=== PATIENT | female | born 1975 | race Caucasian/White ===

== ENCOUNTER 2018-12-21 11:46 | Emergency (ER) | payer BC ==
[~2018-12-21] VITALS: Ht 167.6 cm; Wt 61.2 kg
--- OUTSIDE RECORDS SUMMARY | 2018-12-21 11:49 | XMS REPORT | Continuity of Care Document ---
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73 square meter(Confirmed) Resolved Problem 11/01/2017 [facility] Hypertension Resolved Problem 11/01/2017 [facility] Migraine Resolved Problem 11/01/2017 [facility] HEMATURIA, UNSPECIFIED Active [facility] Medications Medication Details Route Status Patient Instructions Ordering Provider Order Date Source omeprazole 40 mg oral delayed release capsule 40 mg=1 cap, PO, Daily, # 30 cap, 0 Refill(s) Active 10/29/2017 [facility] Metoclopramide 10 MG Oral Tablet [Reglan] 10 mg=1 tab, PO, QID, # 28 tab, 0 Refill(s) Active 10/29/2017 [facility] Lorazepam 0.5 mg, 1 tab, Route: PO, Drug form: TAB, TID, Dosing Weight 65.909, kg, PRN Anxiety, Start date: 04/13/16 10:31:00 CDT, Duration: 30 day, Stop date: 05/13/16 10:30:00 CSTNotes: (Same as: Ativan) Inactive 04/13/2016 [facility] influenza virus vaccine, inactivated 0.5 mL, Route: IM, Drug Form: SUSP, Daily, Start date: 04/13/16 9:00:00 CDT, Stop date: 04/13/16 21:00:00 CDTNotes: (Same as: Fluzone Quadrivalent, Fluarix Quadrivalent) For 3 years of age and older (0.5 mL IM) Shake well before use Inactive 04/13/2016 [facility] Losartan 100 mg, 2 tab, Route: PO, Drug form: TAB, Daily, Dosing Weight 65.909, kg, Start date: 04/13/16 9:00:00 CDT, Duration: 30 day, Stop date: 05/12/16 9:00:00 CSTNotes: (Same as: Cozaar) Inactive 04/13/2016 [facility] Oxycontin 15 mg, Route: PO, Drug form: ERTAB, Q12H, Dosing Weight 65.909, kg, Start date: 04/12/16 21:00:00 CDT, Duration: 30 day, Stop date: 05/12/16 9:00:00 [employer] Inactive 04/13/2016 [facility] gabapentin 600 MG Oral Tablet 600 mg, 2 cap, Route: PO, Drug form: CAP, TID, Dosing Weight 65.909, kg, Start date: 04/12/16 21:00:00 CDT, Duration: 30 day, Stop date: 05/12/16 14:00:00 CSTNotes: (Same as: Neurontin) No Longer Active 04/13/2016 [facility] Oxycontin 10 mg, 2 tab, Route: PO, Drug form: TAB, 5X Day, Dosing Weight 65.909, kg, PRN Pain Score 4-6, Start date: 04/12/16 19:41:00 CDT, Duration: 30 day, Stop date: 05/12/16 19:40:00 CSTNotes: (Same as: Ro xicodone) No Longer Active 04/13/2016 [facility] oxyCONTIN 10 mg, 1 tab, Route: PO, Drug form: ERTAB, Q12H, Start date: 04/12/16 18:19:00 CDT, Duration: 30 day, Stop date: 05/12/16 18:00:00 CSTNotes: Do not crush or chew. (Same as: OxyContin) No Longer Active 04/12/2016 [facility] Oxycodone Hydrochloride 5 MG Oral Tablet 5 mg, 1 tab, Route: PO, Drug form: TAB, Q6H, Dosing Weight 65.909, kg, PRN Pain Score 4-6, Start date: 04/12/16 17:32:00 CDT, Duration: 30 day, Stop date: 05/12/16 17:31:00 CSTNotes: (Same as: Roxicodone) Inactive 04/12/2016 [facility] 12 HR Oxycodone Hydrochloride 15 MG Extended Release Tablet [Oxycontin] 15 mg=1 tab, PO, Q12H, 0 Refill(s) Active 04/12/2016 [facility] SUMAtriptan 100 mg oral tablet 100 mg=1 tab, PO, ONCE, 0 Refill(s) Active 04/12/2016 [facility] Phenergan 25 mg, BID, 0 Refill(s) Active 04/12/2016 [facility] gabapentin 600 MG Oral Tablet 600 mg=1 tab, PO, TID, 0 Refill(s) Active 04/12/2016 [facility] Saline Flush 0.9% 10 ml, Route: IVP, Drug Form: INJ, Dosing Weight 65.909, kg, PRN, PRN Line Flush, Start date: 04/12/16 10:18:00 CDT, Duration: 30 day, Stop date: 05/12/16 9:17:00 CSTNotes: (Same as: BD Posiflush) No Longer Active 04/12/2016 [facility] Ondansetron 4 mg, 2 mL, Route: IVP, Drug form: INJ, Q6H, Dosing Weight 65.909, kg, PRN Nausea & Vomiting, Start date: 04/12/16 10:18:00 CDT, Duration: 30 day, Stop date: 05/12/16 10:17:00 CSTNotes: (Same as: Zofran) MEDICATION WASTE Product Size: 4 mg Product Wasted: ___ mg No Longer Active 04/12/2016 [facility] Acetaminophen 325 mg, 1 tab, Route: PO, Drug form: TAB, Q4H, Dosing Weight 65.909, kg, PRN Pain Score 4-6, Start date: 04/12/16 10:18:00 CDT, Duration: 30 day, Stop date: 05/12/16 10:17:00 CSTNotes: Do not exceed 4 gm/day. (Same as: Tylenol) Inactive 04/12/2016 [facility] oxyCODONE 15 mg oral tablet 15 mg=1 tab, PO, BID, PRN Pain, 0 Refill(s) Active 04/04/2016 [facility] losartan 50 mg oral tablet 50 mg=1 tab, PO, Daily, # 30 tab, 0 Refill(s) Active 04/04/2016 [facility] oxyCODONE 10 mg oral tablet 10 mg=1 tab, PO, 5X Day, 0 Refill(s) Active 04/04/2016 [facility] Allergies, Adverse Reactions, Alerts Substance Category Reaction Severity Reaction type Status Date Reported Comments Source azithromycin Assertion Drug allergy Active [facility] Zofran Assertion migraine Propensity to adverse reactions to drug Active [facility] Latex Assertion Drug allergy Active [facility] Immunizations Immunization Date Given Site Status Last Updated Comments Source pneumococcal 13-valent vaccine 04/14/2016 Left deltoid completed Liz [facility] influenza virus vaccine, inactivated 04/13/2016 Left Deltoid completed Lex [facility] Results Order Name Results Value Reference Range Date Interpretation Comments Source ELECTROLYTES AGAP 13.2 10.0 - 20.0 04/13/2016 [facility] ELECTROLYTES eGFR 104 04/13/2016 Result Comment: The eGFR is calculated using the CKD-EPI formula. In most young, healthy individuals the eGFR will be >90 mL/min/1.73m2. The eGFR declines with age. An eGFR of 60-89 may be normal in some populations, particularly the elderly, for whom the CKD-EPI formula has not been extensively validated. Use of the eGFR is not recommended in the following populations:

Individuals with unstable creatinine concentrations, including patients and those with serious co-morbid conditions.

Patients with extremes in muscle mass or diet.

The data above are obtained from the National Kidney Disease Education Program (NKDEP) which additionally recommends that when the eGFR is used in patients with extremes of body mass index for purposes of drug dosing, the eGFR should be multiplied by the estimated BMI. [facility] ELECTROLYTES Glucose Lvl 104 70 - 99 04/13/2016 [facility] ELECTROLYTES BUN 11 7 - 22 04/13/2016 [facility] ELECTROLYTES CO2 25 24 - 32 04/13/2016 [facility] ELECTROLYTES Chloride Lvl 107 95 - 109 04/13/2016 [facility] ELECTROLYTES Potassium Lvl 4.2 3.5 - 5.1 04/13/2016 [facility] ELECTROLYTES Sodium Lvl 141 135 - 145 04/13/2016 [facility] ELECTROLYTES Creatinine Lvl 0.73 0.50 - 1.40 04/13/2016 [facility] ELECTROLYTES Calcium Lvl 8.1 8.5 - 10.5 04/13/2016 [facility] HEMATOLOGY Hgb 13.0 12.0 - 16.0 04/13/2016 [facility] HEMATOLOGY Hct 38.9 36.0 - 48.0 04/13/2016 [facility] HEMATOLOGY MCV 87.4 80.0 - 98.0 04/13/2016 [facility] HEMATOLOGY WBC 10.0 3.7 - 10.4 04/13/2016 [facility] HEMATOLOGY RBC 4.44 4.20 - 5.40 04/13/2016 [facility] HEMATOLOGY MPV 7.1 7.4 - 10.4 04/13/2016 [facility] HEMATOLOGY Platelet 246 133 - 450 04/13/2016 [facility] HEMATOLOGY RDW 13.4 11.5 - 14.5 04/13/2016 [facility] HEMATOLOGY MCHC 33.5 32.0 - 36.0 04/13/2016 [facility] HEMATOLOGY MCH 29.3 27.0 - 31.0 04/13/2016 [facility] HEMATOLOGY Monocytes # 0.9 0.0 - 0.8 04/13/2016 [facility] HEMATOLOGY Eosinophils # 0.2 0.0 - 0.5 04/13/2016 [facility] HEMATOLOGY Lymphocytes # 3.6 1.0 - 5.5 04/13/2016 [facility] HEMATOLOGY Basophils 0.4 0.0 - 1.0 04/13/2016 [facility] HEMATOLOGY Segs-Bands # 5.3 1.5 - 8.1 04/13/2016 [facility] HEMATOLOGY Eosinophils 2.2 0.0 - 4.0 04/13/2016 [facility] HEMATOLOGY Segs 52.7 45.0 - 75.0 04/13/2016 [facility] HEMATOLOGY Lymphocytes 35.8 20.0 - 40.0 04/13/2016 [facility] HEMATOLOGY Monocytes 8.9 2.0 - 12.0 04/13/2016 [facility] IMMUNOLOGY Hep Bs Ab 146.6 <=7.4 mIU/mL 04/12/2016 [facility] IMMUNOLOGY Hep C Ab Negative *NA* (04/12/16 6:59 PM) 04/12/2016 [facility] IMMUNOLOGY HIV Ag/Ab 4th Gen Negative *NA* (04/12/16 6:59 PM) Negative 04/12/2016 [facility] CHEM PANEL Procalcitonin Lvl <0.05 ng/mL 0.00 - 0.10 04/12/2016 [facility] HEMATOLOGY Sed Rate 4 0 - 20 04/12/2016 [facility] IMMUNOLOGY C-REACTIVE PROTEIN <2.9 <=2.9 mg/L 04/12/2016 [facility] URINE AND STOOL UA Urobilinogen <=1.0 mg/dL 0.1 - 1.0 04/12/2016 [facility] URINE AND STOOL UA Mucus Few /LPF None Seen /LPF 04/12/2016 [facility] URINE AND STOOL UA Bacteria Occasional /HPF None Seen /HPF 04/12/2016 [facility] URINE AND STOOL UA Leuk Est Negative (04/12/16 2:00 PM) Negative 04/12/2016 [facility] URINE AND STOOL UA Nitrite Negative (04/12/16 2:00 PM) Negative 04/12/2016 [facility] URINE AND STOOL UA RBC 92 0 - 2 04/12/2016 [facility] URINE AND STOOL UA WBC 14 0 - 5 04/12/2016 [facility] URINE AND STOOL UA Sq Epi Few /LPF Few /LPF 04/12/2016 [facility] URINE AND STOOL UA Glucose Negative mg/dL Negative mg/dL 04/12/2016 [facility] URINE AND STOOL UA Ketones Negative mg/dL Negative mg/dL 04/12/2016 [facility] URINE AND STOOL UA Blood Moderate *ABN* (04/12/16 2:00 PM) Negative 04/12/2016 [facility] URINE AND STOOL UA Bili Negative *NA* (04/12/16 2:00 PM) Negative 04/12/2016 [facility] URINE AND STOOL UA pH 8.0 5.0 - 8.0 04/12/2016 [facility] URINE AND STOOL UA Protein >=300 mg/dL Negative mg/dL 04/12/2016 [facility] URINE AND STOOL UA Color Yellow *NA* (04/12/16 2:00 PM) Yellow 04/12/2016 [facility] URINE AND STOOL UA Turbidity Clear (04/12/16 2:00 PM) Clear 04/12/2016 [facility] URINE AND STOOL UA Spec Grav 1.022 <=1.030 04/12/2016 [facility] CHEM PANEL eGFR 92 04/12/2016 Result Comment: The eGFR is calculated using the CKD-EPI formula. In most young, healthy individuals the eGFR will be >90 mL/min/1.73m2. The eGFR declines with age. An eGFR of 60-89 may be normal in some populations, particularly the elderly, for whom the CKD-EPI formula has not been extensively validated. Use of the eGFR is not recommended in the following populations:

Individuals with unstable creatinine concentrations, including patients and those with serious co-morbid conditions.

Patients with extremes in muscle mass or diet.

The data above are obtained from the National Kidney Disease Education Program (NKDEP) which additionally recommends that when the eGFR is used in patients with extremes of body mass index for purposes of drug dosing, the eGFR should be multiplied by the estimated BMI. [facility] CHEM PANEL Glucose Lvl 84 70 - 99 04/12/2016 [facility] CHEM PANEL Creatinine Lvl 0.81 0.50 - 1.40 04/12/2016 [facility] CHEM PANEL BUN 12 7 - 22 04/12/2016 [facility] CHEM PANEL Sodium Lvl 138 135 - 145 04/12/2016 [facility] CHEM PANEL Potassium Lvl 4.9 3.5 - 5.1 04/12/2016 Result Comment: Specimen is 1+ hemolyzed 04/12/2016 10:57 [facility] CHEM PANEL Chloride Lvl 105 95 - 109 04/12/2016 [facility] CHEM PANEL CO2 28 24 - 32 04/12/2016 [facility] CHEM PANEL Total Protein 7.1 6.4 - 8.4 04/12/2016 [facility] CHEM PANEL Albumin Lvl 3.4 3.5 - 5.0 04/12/2016 [facility] CHEM PANEL Calcium Lvl 7.9 8.5 - 10.5 04/12/2016 [facility] CHEM PANEL AST 39 0 - 37 04/12/2016 [facility] CHEM PANEL ALT 19 0 - 65 04/12/2016 [facility] CHEM PANEL Alk Phos 64 39 - 136 04/12/2016 [facility] CHEM PANEL Bili Total 0.3 0.2 - 1.3 04/12/2016 [facility] CHEM PANEL B/C Ratio 15 6 - 25 04/12/2016 [facility] CHEM PANEL AGAP 9.9 10.0 - 20.0 04/12/2016 [facility] CHEM PANEL A/G Ratio 0.9 0.7 - 1.6 04/12/2016 [facility] CHEM PANEL Globulin 3.7 2.7 - 4.2 04/12/2016 [facility] CHEM PANEL Lactic Acid Lvl 0.9 0.5 - 2.2 04/12/2016 [facility] MCV 88.3 80.0 - 98.0 04/12/2016 [facility] MCH 29.3 27.0 - 31.0 04/12/2016 [facility] MCHC 33.2 32.0 - 36.0 04/12/2016 [facility] RDW 13.3 11.5 - 14.5 04/12/2016 [facility] Platelet 289 133 - 450 04/12/2016 [facility] MPV 7.1 7.4 - 10.4 04/12/2016 [facility] RBC 4.92 4.20 - 5.40 04/12/2016 [facility] Hgb 14.4 12.0 - 16.0 04/12/2016 [facility] Hct 43.4 36.0 - 48.0 04/12/2016 [facility] WBC 11.6 3.7 - 10.4 04/12/2016 [facility] Segs 72.3 45.0 - 75.0 04/12/2016 [facility] Basophils 0.4 0.0 - 1.0 04/12/2016 [facility] Eosinophils 0.7 0.0 - 4.0 04/12/2016 [facility] Lymphocytes 19.9 20.0 - 40.0 04/12/2016 [facility] Monocytes 6.7 2.0 - 12.0 04/12/2016 [facility] Lymphocytes # 2.3 1.0 - 5.5 04/12/2016 [facility] Segs-Bands # 8.4 1.5 - 8.1 04/12/2016 [facility] Monocytes # 0.8 0.0 - 0.8 04/12/2016 [facility] Eosinophils # 0.1 0.0 - 0.5 04/12/2016 [facility] Pathology Reports No Data Provided for This Section Diagnostic Reports Report Value Date Source Biopsy kidney VR RENAL BIOPSY: HISTORY: IgA nephropathy with worsening proteinuria and stage II chronic kidney disease. PROCEDURE: The procedure was done using CT guidance, sterile technique and local anesthetic (DLP 726.38 mGycm). Moderate Sedation was administered by the Interventional Radiology Nurse per ASA guidelines under my direct supervision (6 mg Versed/200 mcg fentanyl over 21 minutes). A 17-gauge guide needle was placed from a left posterior flank approach into the inferior pole cortex of the left kidney. 4 cores of tissue were then obtained using a coaxial 18-gauge cutting needle and placed into Darryn's and Shiloh fixatives for histology and electron microscopy. The tract was embolized with one piece of Gelfoam via the guide needle prior to its removal. Post biopsy CT showed no evidence of significant renal or perinephric hematoma. The patient tolerated the procedure well without immediate complications, and was transferred to Special Procedures Observation stable condition. [id number] 10/29/2017 [facility] Biopsy kidney VR Patient Name: MEENU DELACRUZ : 1975; Age: 40 years y/o Female MR: [id number] Study: Biopsy kidney VR 04/04/2016 8:04 AM CDT Ordering Physician: MD Camille Sheikh MD Clinical Indication: hematuria and kidney disease; Comparison: None CT-guided percutaneous core biopsy right renal lower pole cortex. Intravenous conscious sedation. Patient received total 8 mg Versed and 300 mg fentanyl, 50 mg of Benadryl intravenously for conscious sedation. Total physician-patient [id number] sedation monitoring 25 minutes. 18-gauge core biopsy of right renal lower pole cortex performed through 17-gauge cannula. CT guidance. 6 core biopsy specimens obtained, 3 of which sent in Darryn's and 3 which sent in Shiloh media for laboratory analysis. Procedure well-tolerated. SL: [id number] 04/04/2016 [facility] Consultation Notes No Data Provided for This Section Discharge Summaries No Data Provided for This Section History and Physicals No Data Provided for This Section Vital Signs Vital Sign Value Date Comments Source Weight 63.636 10/29/2017 [facility] Height 167.64 cm 10/29/2017 [facility] BMI Calculated 22.64 10/29/2017 [facility] Respitory Rate 16 04/13/2016 [facility] Systolic (mm Hg) 109 04/13/2016 [facility] Diastolic (mm Hg) 75 04/13/2016 [facility] Heart Rate 86 04/13/2016 [facility] Temperature Oral (F) 98.6 F 04/13/2016 [facility] Temperature Oral (F) 98.2 F 04/13/2016 [facility] Respitory Rate 16 04/13/2016 [facility] Systolic (mm Hg) 143 04/13/2016 [facility] Diastolic (mm Hg) 88 04/13/2016 [facility] Heart Rate 82 04/13/2016 [facility] Respitory Rate 18 04/13/2016 [facility] Heart Rate 65 04/13/2016 [facility] Temperature Oral (F) 98.1 F 04/13/2016 [facility] Systolic (mm Hg) 113 04/13/2016 [facility] Diastolic (mm Hg) 73 04/13/2016 [facility] Weight 65.909 04/12/2016 [facility] BMI Calculated 23.45 04/12/2016 [facility] Height 167.64 cm 04/12/2016 [facility] Height 167.64 cm 04/12/2016 [facility] Weight 65.909 04/12/2016 [facility] BMI Calculated 23.45 04/12/2016 [facility] Weight 65 04/04/2016 [facility] BMI Calculated 23.13 04/04/2016 [facility] Height 167.64 cm 04/04/2016 [facility] Encounters Location Location Details Encounter Type Encounter Number Reason For Visit Attending Provider ADM Date DC Date Status Source [facility] Outpatient [id number] Camille Sheikh 04/04/2016 04/05/[address] [facility] [place] [place] Observation [id number] Celeste Fernandes 04/12/2016 04/14/[address] [facility] [place] [place] Emergency [id number] David Suttonwuma 02/16/2017 02/16/[address] [facility] [place] [place] Outpatient [id number] Camille Sheikh 10/29/2017 10/30/2017 [facility] Procedures Procedure Code Date Perfomer Comments Source section [id number] 06/18/2011 [facility] Cholecystectomy [id number] [facility] Fusion of cervicothoracic joint by anterior approach [id number] [facility] Fusion of joint of lumbar spine by anterior approach<sup>1</sup> [id number] L1-L2, L5-S1 [facility] Hysterectomy<sup>2</sup> [id number] partial [facility] Tonsillectomy [id number] [facility] Assessment and Plan Assessment and Plan Date Source Extracted from:Title: Clinical Document Author: Petra Correa MD Date: 04/13/16 Cardiology [facility] Impression: 1. IgA nephropathy. 2. Hypertension. 3. Tobacco use disorder. Plan: TTE no vegetations or significant valvular disorders Inflammatory markers unremarkable Very low pre test prob for endocarditis No indication for BRIA OK to DC home from CV perspective Subjective: Patient seen and examined. Telemetry reviewed: Alert No CP No SOB No N/V Objective Vitals Tmp(F) Pulse BP RR SpO2 FIO2 04/13 12:25 98.6 86 109/75 16 96 --- 04/13 09:16 98.2 82 143/88 16 98 --- 04/13 04:18 98.1 65 113/73 18 94 --- 04/12 23:03 97.3 71 114/73 18 97 --- 04/12 19:20 98.6 73 137/66 18 95 --- 24 Hr Tmax: 98.6F (37.00c) at 04/13 12:25 Vital Signs are the last 5 in the past 48 hours. HEENT: Neck Supple, No JVD, no carotid bruits CVS: Regular rate, Normal S1S2 no murmur rubs or gallops LUNGS: Clear to auscultation ABD: Soft, Non-tender, + BS, no bruits or organomegaly EXT: No ankle edema, palpable distal pulses Skin: No ulcers Neuro: Grossly non-focal Labs (Last four charted values) WBC 10.0 (APR 13) H 11.6 (APR 12) Hgb 13.0 (APR 13) 14.4 (APR 12) Hct 38.9 (APR 13) 43.4 (APR 12) Plt 246 (APR 13) 289 (APR 12) Na 141 (APR 13) 138 (APR 12) K 4.2 (APR 13) 4.9 (APR 12) CO2 25 (APR 13) 28 (APR 12) Cl 107 (APR 13) 105 (APR 12) Cr 0.73 (APR 13) 0.81 (APR 12) BUN 11 (APR 13) 12 (APR 12) Glucose Random H 104 (APR 13) 84 (APR 12) Ca L 8.1 (APR 13) L 7.9 (APR 12) Scheduled Meds (4): 04/12/16 gabapentin (gabapentin 600 mg oral tablet) 600 mg PO TID 04/13/16 influenza virus vaccine, inactivated 0.5 mL IM Daily 04/13/16 losartan 100 mg PO Daily 04/12/16 oxyCODONE (oxyCONTIN) 10 mg PO Q12H Extracted from:Title: Clinical Document Author: Mynor Masters MD Date: 04/12/16 [facility] INFECTIOUS DISEASE CONSULTATION NOTE Danilo Storm M.D. Syed W. Hasan, M.D. REFERRING PHYSICIAN: Dr. Camille Sheikh REASON FOR CONSULTATION: Necrotizing Glomerulonephritis CHIEF COMPLAINT: Blood in urine HISTORY OF PRESENT ILLNESS: Ms. Meenu Delacruz is a 40 year old lady who underwent spinal fusion back in July for a herniated disk after a fall. She had repeat surgery last August at which point she was noted to have hematuria. 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 She was admitted to ensure there was no evidence of infection before initiating therapy with prednisone and Cytoxan. Patient denies any fever or chills but has noted sweats at night for several months occasionally. She denies any weight loss or travel outside the country. She denies any burning or pain with urination. She has had a chronic cough for the past month after an episode of bronchitis and is currently smoking. REVIEW OF SYSTEMS: CONSTITUTIONAL: Denies fever, chills, + night sweats. EYES: Denies blurry vision or eye pain. ENT: Denies ear pain, nasal drainage, or sore throat. RESPIRATORY: Denies shortness of breath; +cough. CARDIOVASCULAR: Denies chest pain or palpitations. GASTROINTESTINAL: Denied nausea, vomiting, diarrhea, or abdominal pain. GENITOURINARY: Denies dysuria, frequency, or urgency. + orange urine MUSCULOSKELETAL: No joint pain, muscle aches, or swelling. NEUROLOGIC: Denies any focal weakness or headaches. SKIN: No rashes or lesions. ENDOCRINE: Denies history of polyuria, polydipsia, heat or cold intolerance. HEME/LYMPH: Denies bleeding, bruising, or swollen glands. PSYCH: No depression or anxiety PAST MEDICAL/SURGICAL HISTORY: Chronic back pain Chronic renal disease, stage 1, glomerular filtration rate (GFR) equal to or greater than 90 mL/min/1.73 square meter Hypertension Migraine section: 2011 Fusion of joint of lumbar spine by anterior approach Tonsillectomy Fusion of cervicothoracic joint by anterior approach Hysterectomy Cholecystectomy SOCIAL HISTORY: Current tobacco use and alcohol use FAMILY HISTORY: No kidney disease PHYSICAL EXAMINATION: Vitals Tmp(F) Pulse BP RR SpO2 FIO2 04/12 15:57 98.1 71 97/64 18 98 --- 04/12 11:12 98.3 63 124/78 18 97 --- 04/12 10:13 98.0 81 128/83 18 96 --- 24 Hr Tmax: 98.3F (36.83c) at 04/12 11:12 Vital Signs are the last 5 in the past 48 hours. GEN: No acute distress, conversant HEENT: Sclera white; No thrush or erythema; Moist membranes LUNG: Clear to auscultation bilaterally; No wheeze, rhonchi, or crackles HEART: RRR; +S1/S2; No murmurs, rubs, or gallops ABD: +BS; Soft; Non-distended; Non-tender EXT: No clubbing, cyanosis, or edema NEURO: Alert and oriented; PERRL; No gross focal deficits SKIN: No rashes, ecchymosis, or lesions PSYCH: Appropriate affect (no lines, tubes, drains information documentated) MEDICATIONS: Scheduled Meds (2): 04/13/16 influenza virus vaccine, inactivated 0.5 mL IM Daily 04/13/16 losartan 100 mg PO Daily ALLERGIES: Allergies (3) Active Reaction Zofran migraine Latex None documented azithromycin None documented LABORATORY (Reviewed): Labs (Last four charted values) WBC H 11.6 (APR 12) Hgb 14.4 (APR 12) Hct 43.4 (APR 12) Plt 289 (APR 12) Na 138 (APR 12) K 4.9 (APR 12) CO2 28 (APR 12) Cl 105 (APR 12) Cr 0.81 (APR 12) BUN 12 (APR 12) Glucose Random 84 (APR 12) Ca L 7.9 (APR 12) Alk Phos: 64 04/12/16 11:10:46 A/G Ratio: 0.9 04/12/16 11:10:46 ALT: 19 04/12/16 11:10:46 Albumin Lvl: 3.4 Low 04/12/16 11:10:46 Bili Total: 0.3 04/12/16 11:10:46 Total Protein: 7.1 04/12/16 11:10:46 Globulin: 3.7 04/12/16 11:10:46 AST: 39 High 04/12/16 11:10:46 MICROBIOLOGY (Reviewed): Blood: Pending Urine: Pending IMAGING (Reviewed): TTE: Aortic Valve: There is no evidence of aortic stenosis. There is no evidence of aortic regurgitation. The aortic valve structure is normal. Mitral Valve: There is no evidence of mitral stenosis. There is no evidence of mitral regurgitation. The mitral valve leaflets are normal. Tricuspid Valve: There is mild tricuspid regurgitation. The tricuspid valve leaflets are morphologically normal. Unable to estimate right ventricular systolic pressure. Pulmonic Valve: The pulmonic valve is not well visualized. ASSESSMENT and PLAN: 40 yo WF presents with: * Leukocytosis * Necrotizing Glomerulonephritis * IgA Nephropathy * Nephrotic Proteinuria * Hematuria * Tobacco Use - Patient presents with necrotizing glomerulonephritis with subjective night sweats and evidence of mild leukocytosis upon admission with hematuria. She does not appear systemically ill and has no current localizing signs of infection. Will continue to follow-up cultures and procalcitonin. TTE with only mild TR. Unless blood cultures are positive, would not need to pursue BRIA at this time. Will continue to monitor off antibiotics and ensure no infectious etiologies before proceeding with immunosuppression. Extracted from:Title: Clinical Document Author: Celeste Fernandes MD Date: 04/12/16 Chart reveiwed. Patient seen and examined. WIll continue to follow. [id number] 04/14/2016 [facility] Plan of Care No Data Provided for This Section Social History Social History Date Source Social History TypeResponse Alcohol Current, Type Beer, Wine, Liquor. Frequency: 1-2 times per month. Previous treatment: None. Alcohol use interferes with work or home: No. Drinks more than intended: No. Others hurt by drinking: No. Ready to change: No. Household alcohol concerns: No. Smoking Status Current every day smoker; Type: Cigarettes; Previous treatment: None; Ready to change: No; Concerns about tobacco use in household: No; Exposure to Tobacco Smoke None; Cigarette Smoking Last 365 Days No; Reg Smoking Cessation Counseling Yes; Tobacco use per day: 20; Number of years: 23; Other Tobacco Frequency [id number]; entered on: 10/29/17 04/04/2016 [facility] Family History No Data Provided for This Section Advance Directives No Data Provided for This Section Functional Status No Data Provided for This Section
--- OUTSIDE RECORDS SUMMARY | 2018-12-21 11:50 | XMS REPORT | Summary of Care ---
Author Author [facility] Organization [facility] Address Unknown Phone Unavailable Encounter BRYNN Gonzalez(GARY) [id number] Date(s): 10/29/17 - 10/29/17 [facility] [address] [place] [address]- [phone] Discharge Disposition: Home or Self Care Attending Physician: Camille Sheikh MD Referring Physician: Camille Sheikh MD Vital Signs Most recent to 1 oldest [Reference Range]: Height 167.64 cm (10/29/17 9:13 AM) Weight 63.636 kg (10/29/17 9:13 AM) Body Mass Index 22.64 m2 (10/29/17 9:13 AM) Problem List Condition Effective Dates Status Health Status Informant Chronic back Resolved pain(Confirmed) Chronic renal Resolved disease, stage 1, glomerular filtration rate (GFR) equal to or greater than 90 mL/min/1.73 square meter(Confirmed) Hypertension(Confirm Resolved ed) Migraine(Confirmed) Resolved Allergies, Adverse Reactions, Alerts Substance Reaction Severity Status azithromycin Active Zofran migraine Active Latex Active Medications omeprazole 40 mg oral delayed release capsule 40 mg=1 cap, PO, Daily, # 30 cap, 0 Refill(s) Start Date: 10/29/17 Status: Ordered Reglan 10 mg oral tablet 10 mg=1 tab, PO, QID, # 28 tab, 0 Refill(s) Start Date: 10/29/17 Stop Date: 11/05/17 Status: Ordered Results No data available for this section Immunizations Given and Recorded Vaccine Date Status Refusal Reason pneumococcal 13-valent vaccine 04/13/16 Given influenza virus vaccine, inactivated 04/13/16 Given Procedures Procedure Date Related Diagnosis Body Site Status section 2011 Completed Cholecystectomy Completed Fusion of cervicothoracic joint by anterior Completed approach Fusion of joint of lumbar spine by anterior Completed approach1 Hysterectomy2 Completed Tonsillectomy Completed 1L1-L2, L5-S1 2partial Social History Social History Type Response Alcohol Current, Type Beer, Wine, Liquor. Frequency: [...] Number of years: 23; Other Tobacco Frequency [id number]; entered on: 10/29/17 Assessment and Plan No data available for this section
--- OUTSIDE RECORDS SUMMARY | 2018-12-21 11:50 | XMS REPORT | Summary of Care ---
Author Author [facility] Organization [facility] Address Unknown Phone Unavailable Encounter BRYNN Gonzalez(GARY) [id number] Date(s): 04/12/16 - 04/13/16 [facility] [address] [place] [address]- Discharge Disposition: Home or Self Care Attending Physician: Celeste Fernandes MD Admitting Physician: Celeste Fernandes MD Vital Signs 1 2 3 Most recent to oldest [Reference Range]: 167.64 cm (04/12/16 10:21 AM) 167.64 cm (04/12/16 10:15 AM) Height 98.6 DegF (04/13/16 12:25 PM) 98.2 DegF (04/13/16 9:16 AM) 98.1 DegF (04/13/16 4:18 AM) Temperature Oral [96.4-99.1 DegF] 109/75 mmHg (04/13/16 12:25 PM) 143/88 mmHg *HI* (04/13/16 9:16 AM) 113/73 mmHg (04/13/16 4:18 AM) Blood Pressure [90-140/60-90 mmHg] 16 BRMIN (04/13/16 12:25 PM) 16 BRMIN (04/13/16 9:16 AM) 18 BRMIN (04/13/16 4:18 AM) Respiratory Rate [14-20 BRMIN] 86 bpm (04/13/16 12:25 PM) 82 bpm (04/13/16 9:16 AM) 65 bpm (04/13/16 4:18 AM) Peripheral Pulse Rate [60-100 bpm] 65.909 kg (04/12/16 10:21 AM) 65.909 kg (04/12/16 10:15 AM) Weight 23.45 m2 (04/12/16 10:21 AM) 23.45 m2 (04/12/16 10:15 AM) Body Mass Index Problem List Condition Effective Dates Status Health Status Informant Chronic back Resolved pain(Confirmed) Chronic renal Resolved disease, stage 1, glomerular filtration rate (GFR) equal to or greater than 90 mL/min/1.73 square meter(Confirmed) Hypertension(Confirm Resolved ed) Migraine(Confirmed) Resolved Allergies, Adverse Reactions, Alerts Substance Reaction Severity Status azithromycin Active Latex Active Zofran migraine Active Medications acetaminophen 325 mg, 1 tab, Route: PO, Drug form: TAB, Q4H, Dosing Weight 65.909, kg, PRN To n Score 4-6, Start date: 04/12/16 10:18:00 CDT, Duration: 30 day, Stop date: 10:17:00 [employer] MAINTENA[employer]CE SUPERVISOR Notes: Do not exceed 4 gm/day. (Same as: Tylenol) Start Date: 04/12/16 Stop Date: 04/12/16 Status: Deleted acetaminophen 650 mg, 2 tab, Route: PO, Drug form: TAB, Q4H, Dosing Weight 65.909, kg, PRN To n 1-3/Temp > 100.4 F, Start date: 04/12/16 10:18:00 CDT, Duration: 30 day, Stop date: 05/12/16 10:17:00 WATER MAINTENANCE SUPERVISOR Notes: Do not exceed 4 gm/day. (Same as: Tylenol) Start Date: 04/12/16 Stop Date: 04/13/16 Status: Discontinued gabapentin 600 mg oral tablet 600 mg, 2 cap, Route: PO, Drug form: CAP, TID, Dosing Weight 65.909, kg, Start d ate: 04/12/16 21:00:00 CDT, Duration: 30 day, Stop date: 05/12/16 14:00:00 WATER MAINTENANCE SUPERVISOR Notes: (Same as: Neurontin) Start Date: 04/12/16 Stop Date: 04/13/16 Status: Discontinued gabapentin 600 mg oral tablet 600 mg=1 tab, PO, TID, 0 Refill(s) Start Date: 04/12/16 Status: Ordered influenza virus vaccine, inactivated 0.5 mL, Route: IM, Drug Form: SUSP, Daily, Start date: 04/13/16 9:00:00 CDT, Sto p date: 04/13/16 21:00:00 CDT Notes: (Same as: Fluzone Quadrivalent, Fluarix Quadrivalent)For 3 years of age a nd older (0.5 mL IM)Shake well before use Start Date: 04/13/16 Stop Date: 04/13/16 Status: Discontinued LORazepam 0.5 mg, 1 tab, Route: PO, Drug form: TAB, TID, Dosing Weight 65.909, kg, PRN Anx iety, Start date: 04/13/16 10:31:00 CDT, Duration: 30 day, Stop date: 05/13/16 1 0:30:00 WATER MAINTENANCE SUPERVISOR Notes: (Same as: Ativan) Start Date: 04/13/16 Stop Date: 04/13/16 Status: Discontinued losartan 100 mg, 2 tab, Route: PO, Drug form: TAB, Daily, Dosing Weight 65.909, kg, Start date: 04/13/16 9:00:00 CDT, Duration: 30 day, Stop date: 05/12/16 9:00:00 WATER MAINTENANCE SUPERVISOR Notes: (Same as: Reyna) Start Date: 04/13/16 Stop Date: 04/13/16 Status: Discontinued losartan 100 mg, 2 tab, Route: PO, Drug form: TAB, Daily, Dosing Weight 65.909, kg, Start date: 04/13/16 9:00:00 CDT, Duration: 30 day, Stop date: 05/12/16 9:00:00 WATER MAINTENANCE SUPERVISOR Notes: (Same as: Reyna) Start Date: 04/13/16 Stop Date: 04/12/16 Status: Deleted ondansetron 4 mg, 2 mL, Route: IVP, Drug form: INJ, Q6H, Dosing Weight 65.909, kg, PRN Nause a & Vomiting, Start date: 04/12/16 10:18:00 CDT, Duration: 30 day, Stop date: 05/12/16 10:17:00 WATER MAINTENANCE SUPERVISOR Notes: (Same as: James) MEDICATION WASTE Product Size: 4 mgProduct Was olivier: ___ mg Start Date: 04/12/16 Stop Date: 04/13/16 Status: Discontinued oxyCODONE 5 mg oral tablet 10 mg, 2 tab, Route: PO, Drug form: TAB, 5X Day, Dosing Weight 65.909, kg, PRN P ain Score 4-6, Start date: 04/12/16 19:41:00 CDT, Duration: 30 day, Stop date: 07/12/15 19:40:00 WATER MAINTENANCE SUPERVISOR Notes: (Same as: Roxicodone) Start Date: 04/12/16 Stop Date: 04/13/16 Status: Discontinued oxyCODONE 5 mg oral tablet 5 mg, 1 tab, Route: PO, Drug form: TAB, Q6H, Dosing Weight 65.909, kg, PRN Pain Score 4-6, Start date: 04/12/16 17:32:00 CDT, Duration: 30 day, Stop date: 05/12 17:31:00 WATER MAINTENANCE SUPERVISOR Notes: (Same as: Roxicodone) Start Date: 04/12/16 Stop Date: 04/12/16 Status: Discontinued oxyCONTIN 15 mg, Route: PO, Drug form: ERTAB, Q12H, Dosing Weight 65.909, kg, Start date: 04/12/16 21:00:00 CDT, Duration: 30 day, Stop date: 05/12/16 9:00:00 WATER MAINTENANCE SUPERVISOR Start Date: 04/12/16 Stop Date: 04/12/16 Status: Deleted oxyCONTIN 10 mg, 1 tab, Route: PO, Drug form: ERTAB, Q12H, Start date: 04/12/16 18:19:00 C DT, Duration: 30 day, Stop date: 05/12/16 18:00:00 WATER MAINTENANCE SUPERVISOR Notes: Do not crush or chew.(Same as: OxyContin) Start Date: 04/12/16 Stop Date: 04/13/16 Status: Discontinued oxyCONTIN 15 mg oral tablet, extended release 15 mg=1 tab, PO, Q12H, 0 Refill(s) Start Date: 04/12/16 Status: Ordered Phenergan 25 mg, BID, 0 Refill(s) Start Date: 04/12/16 Status: Ordered Saline Flush 0.9% 10 ml, Route: IVP, Drug Form: INJ, Dosing Weight 65.909, kg, PRN, PRN Line Flush , Start date: 04/12/16 10:18:00 CDT, Duration: 30 day, Stop date: 05/12/16 9:17: 00 WATER MAINTENANCE SUPERVISOR Notes: (Same as: BD Posiflush) Start Date: 04/12/16 Stop Date: 04/13/16 Status: Discontinued SUMAtriptan 100 mg oral tablet 100 mg=1 tab, PO, ONCE, 0 Refill(s) Start Date: 04/12/16 Status: Ordered Results ELECTROLYTES Most recent to 1 2 oldest [Reference Range]: Sodium Lvl [135-145 141 mEq/L 138 mEq/L mEq/L] (04/13/16 4:07 AM) (04/12/16 10:40 AM) Potassium Lvl 4.2 mEq/L 4.9 mEq/L 1 [3.5-5.1 mEq/L] (04/13/16 4:07 AM) (04/12/16 10:40 AM) Chloride Lvl [95-109 107 mEq/L 105 mEq/L mEq/L] (04/13/16 4:07 AM) (04/12/16 10:40 AM) CO2 [24-32 mEq/L] 25 mEq/L 28 mEq/L (04/13/16 4:07 AM) (04/12/16 10:40 AM) AGAP [10.0-20.0 13.2 mEq/L 9.9 mEq/L mEq/L] (04/13/16 4:07 AM) *LOW* (04/12/16 10:40 AM) 1Result Comment: Specimen is 1+ hemolyzed 04/12/2016 10:57 CHEM PANEL Most recent to 1 2 oldest [Reference Range]: Creatinine Lvl 0.73 mg/dL 0.81 mg/dL [0.50-1.40 mg/dL] (04/13/16 4:07 AM) (04/12/16 10:40 AM) eGFR 104 mL/min/1.73m2 1 92 mL/min/1.73m2 2 *NA* *NA* (04/13/16 4:07 AM) (04/12/16 10:40 AM) BUN [7-22 mg/dL] 11 mg/dL 12 mg/dL (04/13/16 4:07 AM) (04/12/16 10:40 AM) B/C Ratio [6-25] 15 (04/12/16 10:40 AM) Glucose Lvl [70-99 104 mg/dL 84 mg/dL mg/dL] *HI* (04/12/16 10:40 AM) (04/13/16 4:07 AM) Total Protein 7.1 g/dL [6.4-8.4 g/dL] (04/12/16 10:40 AM) Albumin Lvl [3.5-5.0 3.4 g/dL g/dL] *LOW* (04/12/16 10:40 AM) Globulin [2.7-4.2 3.7 g/dL g/dL] (04/12/16 10:40 AM) A/G Ratio [0.7-1.6] 0.9 (04/12/16 10:40 AM) Calcium Lvl 8.1 mg/dL 7.9 mg/dL [8.5-10.5 mg/dL] *LOW* *LOW* (04/13/16 4:07 AM) (04/12/16 10:40 AM) ALT [0-65 unit/L] 19 unit/L (04/12/16 10:40 AM) AST [0-37 unit/L] 39 unit/L *HI* (04/12/16 10:40 AM) Alk Phos [39-136 64 unit/L unit/L] (04/12/16 10:40 AM) Bili Total [0.2-1.3 0.3 mg/dL mg/dL] (04/12/16 10:40 AM) Lactic Acid Lvl 0.9 mMol/L [0.5-2.2 mMol/L] (04/12/16 10:40 AM) Procalcitonin Lvl <0.05 ng/mL [0.00-0.10 ng/mL] (04/12/16 4:54 PM) 1Result Comment: The eGFR is calculated using the [...] from the National Kidney Disease Education Program ( NKDEP) which additionally recommends that when the eGFR is used in patients with extremes of body mass index for purposes of drug dosing, the eGFR should be mul tiplied by the estimated BMI. 2Result Comment: The eGFR is calculated using the [...] from the National Kidney Disease Education Program ( NKDEP) which additionally recommends that when the eGFR is used in patients with extremes of body mass index for purposes of drug dosing, the eGFR should be mul tiplied by the estimated BMI. URINE AND STOOL Most recent to 1 2 oldest [Reference Range]: UA Turbidity [Clear] Clear (04/12/16 2:00 PM) UA Color [Yellow] Yellow *NA* (04/12/16 2:00 PM) UA pH [5.0-8.0] 8.0 (04/12/16 2:00 PM) UA Spec Grav 1.022 [<=1.030] (04/12/16 2:00 PM) UA Glucose [Negative Negative mg/dL mg/dL] *NA* (04/12/16 2:00 PM) UA Blood [Negative] Moderate *ABN* (04/12/16 2:00 PM) UA Ketones [Negative Negative mg/dL mg/dL] *NA* (04/12/16 2:00 PM) UA Protein [Negative >=300 mg/dL mg/dL] *ABN* (04/12/16 2:00 PM) UA Urobilinogen <=1.0 mg/dL [0.1-1.0 mg/dL] *NA* (04/12/16 2:00 PM) UA Bili [Negative] Negative *NA* (04/12/16 2:00 PM) UA Leuk Est Negative [Negative] (04/12/16 2:00 PM) UA Nitrite Negative [Negative] (04/12/16 2:00 PM) UA WBC [0-5 /HPF] 14 /HPF *HI* (04/12/16 2:00 PM) UA RBC [0-2 /HPF] 92 /HPF *HI* (04/12/16 2:00 PM) UA Bacteria [None Occasional /HPF Seen /HPF] *NA* (04/12/16 2:00 PM) UA Sq Epi [Few /LPF] Few /LPF *NA* (04/12/16 2:00 PM) UA Mucus [None Seen Few /LPF /LPF] *NA* (04/12/16 2:00 PM) IMMUNOLOGY Most recent to 1 2 oldest [Reference Range]: CRP [<=2.9 mg/L] <2.9 mg/L (04/12/16 4:54 PM) HIV Ag/Ab 4th Gen Negative [Negative] *NA* (04/12/16 6:59 PM) Hep Bs Ab [<=7.4 146.6 mIU/mL mIU/mL] *HI* (04/12/16 6:59 PM) Hep C Ab Negative *NA* (04/12/16 6:59 PM) HEMATOLOGY Most recent to 1 2 oldest [Reference Range]: WBC [3.7-10.4 K/CMM] 10.0 K/CMM 11.6 K/CMM (04/13/16 4:07 AM) *HI* (04/12/16 10:40 AM) RBC [4.20-5.40 4.44 M/CMM 4.92 M/CMM M/CMM] (04/13/16 4:07 AM) (04/12/16 10:40 AM) Hgb [12.0-16.0 g/dL] 13.0 g/dL 14.4 g/dL (04/13/16 4:07 AM) (04/12/16 10:40 AM) Hct [36.0-48.0 %] 38.9 % 43.4 % (04/13/16 4:07 AM) (04/12/16 10:40 AM) MCV [80.0-98.0 fL] 87.4 fL 88.3 fL (04/13/16 4:07 AM) (04/12/16 10:40 AM) MCH [27.0-31.0 pg] 29.3 pg 29.3 pg (04/13/16 4:07 AM) (04/12/16 10:40 AM) MCHC [32.0-36.0 33.5 g/dL 33.2 g/dL g/dL] (04/13/16 4:07 AM) (04/12/16 10:40 AM) RDW [11.5-14.5 %] 13.4 % 13.3 % (04/13/16 4:07 AM) (04/12/16 10:40 AM) Platelet [133-450 246 K/CMM 289 K/CMM K/CMM] (04/13/16 4:07 AM) (04/12/16 10:40 AM) MPV [7.4-10.4 fL] 7.1 fL 7.1 fL *LOW* *LOW* (04/13/16 4:07 AM) (04/12/16 10:40 AM) Segs [45.0-75.0 %] 52.7 % 72.3 % (04/13/16 4:07 AM) (04/12/16 10:40 AM) Lymphocytes 35.8 % 19.9 % [20.0-40.0 %] (04/13/16 4:07 AM) *LOW* (04/12/16 10:40 AM) Monocytes [2.0-12.0 8.9 % 6.7 % %] (04/13/16 4:07 AM) (04/12/16 10:40 AM) Eosinophils [0.0-4.0 2.2 % 0.7 % %] (04/13/16 4:07 AM) (04/12/16 10:40 AM) Basophils [0.0-1.0 0.4 % 0.4 % %] (04/13/16 4:07 AM) (04/12/16 10:40 AM) Segs-Bands # 5.3 K/CMM 8.4 K/CMM [1.5-8.1 K/CMM] (04/13/16 4:07 AM) *HI* (04/12/16 10:40 AM) Lymphocytes # 3.6 K/CMM 2.3 K/CMM [1.0-5.5 K/CMM] (04/13/16 4:07 AM) (04/12/16 10:40 AM) Monocytes # [0.0-0.8 0.9 K/CMM 0.8 K/CMM K/CMM] *HI* (04/12/16 10:40 AM) (04/13/16 4:07 AM) Eosinophils # 0.2 K/CMM 0.1 K/CMM [0.0-0.5 K/CMM] (04/13/16 4:07 AM) (04/12/16 10:40 AM) Sed Rate [0-20 4 mm/hr mm/hr] (04/12/16 4:54 PM) Immunizations Given and Recorded Vaccine Date Status Refusal Reason influenza virus vaccine, inactivated 04/13/16 Given pneumococcal 13-valent vaccine 04/13/16 Given Procedures Procedure Date Related Diagnosis Body Site section 2011 Cholecystectomy Fusion of cervicothoracic joint by anterior approach Fusion of joint of lumbar spine by anterior approach1 Hysterectomy2 Tonsillectomy 1L1-L2, L5-S1 2partial Social History Social History Type Response Alcohol Current, Type Beer, Wine, Liquor. Frequency: 1-2 times per month. Previous treatment: None. Alcohol use interferes with work or home: No. Drinks more than intended: No. Others hurt by drinking: No. Ready to change: No. Household alcohol concerns: No. Smoking Status Current every day smoker; Type: Cigarettes; Exposed at work; Lives with someone who smokes; Cigarette Smoking Last 365 Days Yes; Reg Smoking Cessation Counseling Yes Assessment and Plan Extracted from: Title: Clinical Document Author: Petra Correa Date: 04/13/[address] [facility] Impression: 1. IgA nephropathy. 2. Hypertension. 3. Tobacco use disorder. Plan: TTE no vegetations or significant valvular disorders Inflammatory markers unremarkable Very low pre test prob for endocarditis No indication for BRIA OK to DC home from CV perspective Subjective: Patient seen and examined. Telemetry reviewed: Alert No CP No SOB No N/V Objective VitalsTmp(F)[id number] 04/13 12:2598.425593/[id number]--- 04/13 09:1698.444621/800502--- 04/13 04:1898.480947/302890--- 04/12 23:0397.594083/[id number]--- 04/12 19:2098.162020/558135--- 24 Hr Tmax: 98.6F (37.00c) at 04/13 12:25Vital Signs are the last 5 in the past 48 hours. HEENT: Neck Supple, No JVD, no carotid bruits CVS: Regular rate, Normal S1S2 no murmur rubs or gallops LUNGS: Clear to auscultation ABD: Soft, Non-tender, + BS, no bruits or organomegaly EXT: No ankle edema, palpable distal pulses Skin: No ulcers Neuro: Grossly non-focal Labs (Last four charted values) WBC 10.0(APR 13)H 11.6(APR 12) Hgb 13.0(APR 13)14.4(APR 12) Hct 38.9(APR 13)43.4(APR 12) Plt 246(APR 13)289(APR 12) Na 141(APR 13)138(APR 12) K 4.2(APR 13)4.9(APR 12) CO2 25(APR 13)28(APR 12) Cl 107(APR 13)105(APR 12) Cr 0.73(APR 13)0.81(APR 12) BUN 11(APR 13)12(APR 12) Glucose Random H 104(APR 13)84(APR 12) Ca L 8.1(APR 13)L 7.9(APR 12)Scheduled Meds (4): 04/12/16 gabapentin (gabapentin 600 mg oral tablet) 600 mg PO TID 04/13/16 influenza virus vaccine, inactivated 0.5 mL IM Daily 04/13/16 losartan 100 mg PO Daily 04/12/16 oxyCODONE (oxyCONTIN) 10 mg PO Q12H Extracted from: Title: Clinical Document Author: Mynor Masters MD Date: 04/12/16 [facility] INFECTIOUS DISEASE CONSULTATION NOTE Mynor Masters M.D. Danilo Resendiz M.D. REFERRING PHYSICIAN: Dr. Sibtain Ali REASON FOR CONSULTATION: Necrotizing Glomerulonephritis CHIEF COMPLAINT: [...] FAMILY HISTORY: No kidney disease PHYSICAL EXAMINATION: VitalsTmp(F)[id number] 04/12 15:5798.15260/750635--- 04/12 11:1298.681854/517963--- 04/12 10:1398.862541/719622--- 24 Hr Tmax: 98.3F (36.83c) at 04/12 11:12Vital Signs are the last 5 in the [...] 100 mg PO Daily ALLERGIES: Allergies (3) ActiveReaction Zofranmigraine LatexNone documented azithromycinNone documented LABORATORY (Reviewed): Labs (Last four charted values) WBC H 11.6(APR 12) Hgb 14.4(APR 12) Hct 43.4(APR 12) Plt 289(APR 12) Na 138(APR 12) K 4.9(APR 12) CO2 28(APR 12) Cl 105(APR 12) Cr 0.81(APR 12) BUN 12(APR 12) Glucose Random 84(APR 12) Ca L 7.9(APR 12) Alk Phos: 64 04/12/16 11:10:46 A/G [...] pulmonic valve is not well visualized. ASSESSMENT & PLAN: 40 yo WF presents with: * [...] infectious etiologies before proceeding with immunosuppression. Extracted from: Title: Clinical Document Author: Celeste Fernandes MD Date: 04/12/16 Chart reveiwed. Patient seen and examined. WIll continue to follow. [id number]
--- OUTSIDE RECORDS SUMMARY | 2018-12-21 11:50 | XMS REPORT | Summary of Care ---
Author Author [facility] Organization [facility] Address Unknown Phone Unavailable Encounter BRYNN Gonzalez(GARY) [id number] Date(s): 02/16/17 - 02/16/17 [facility] [address] [place] [address]- [phone] Discharge Disposition: Not Treated Attending Physician: David Mckeon DO Vital Signs No data available for this section Problem List Condition Effective Dates Status Health Status Informant Chronic back Resolved pain(Confirmed) Chronic renal Resolved disease, stage 1, glomerular filtration rate (GFR) equal to or greater than 90 mL/min/1.73 square meter(Confirmed) Hypertension(Confirm Resolved ed) Migraine(Confirmed) Resolved Allergies, Adverse Reactions, Alerts Substance Reaction Severity Status azithromycin Active Latex Active Zofran migraine Active Medications No data available for this section Results No data available for this section [...] Smoking Cessation Counseling Yes Assessment and Plan No data available for this section
--- OUTSIDE RECORDS SUMMARY | 2018-12-21 11:50 | XMS REPORT | Summary of Care ---
Author Author [facility] Organization [facility] Address Unknown Phone Unavailable Encounter BRYNN Gonzalez(GARY) [id number] Date(s): 04/04/16 - 04/04/16 [facility] [address] [place] [address]- Discharge Disposition: Home or Self Care Attending Physician: Camille Sheihk MD Referring Physician: Camille Sheikh MD Vital Signs Most recent to 1 oldest [Reference Range]: Height 167.64 cm (04/04/16 8:09 AM) Weight 65 kg (04/04/16 8:09 AM) Body Mass Index 23.13 m2 (04/04/16 8:09 AM) Problem List Condition Effective Dates Status Health Status Informant Chronic back Resolved pain(Confirmed) Chronic renal Resolved disease, stage 1, glomerular filtration rate (GFR) equal to or greater than 90 mL/min/1.73 square meter(Confirmed) Hypertension(Confirm Resolved ed) Migraine(Confirmed) Resolved Allergies, Adverse Reactions, Alerts Substance Reaction Severity Status azithromycin Active Latex Active Zofran Active Medications losartan 50 mg oral tablet 50 mg=1 tab, PO, Daily, # 30 tab, 0 Refill(s) Start Date: 04/04/16 Status: Ordered oxyCODONE 10 mg oral tablet 10 mg=1 tab, PO, 5X Day, 0 Refill(s) Start Date: 04/04/16 Status: Ordered oxyCODONE 15 mg oral tablet 15 mg=1 tab, PO, BID, PRN Pain, 0 Refill(s) Start Date: 04/04/16 Stop Date: 04/11/16 Status: Ordered Results No data available for this section Immunizations No data available for this section Procedures Procedure Date Related Diagnosis Body Site section 2012 Cholecystectomy Fusion of cervicothoracic joint by anterior [...] Status Current every day smoker; Type: Cigarettes; Tobacco use per day: 20; Number of years: 23; Ready to change: No; Concerns about tobacco use in household: No; Exposure to Tobacco Smoke None; Cigarette Smoking Last 365 Days No; Reg Smoking Cessation Counseling Yes Assessment and Plan No data available for this section
--- OUTSIDE RECORDS SUMMARY | 2018-12-21 11:50 | XMS REPORT ---
Author Author [facility] Address Unknown Phone Unavailable Care Team Providers Care Utilities Ground Worker Name Role Phone Unavailable Unavailable Problems This patient has no known problems. Allergies, Adverse Reactions, Alerts This patient has no known allergies or adverse reactions. Medications This patient has no known medications.
[2018-12-21] MEDS ORDERED: SODIUM CHLORIDE 0.9% 1000ML 1,000 ML IV STA (12:11)
[2018-12-21 12:38] LABS: BASOPHILS # (AUTO) 0.1 (0.0-0.1); BASOPHILS % 0.5 % (0.0-1.0); EOSINOPHILS # (AUTO) 0.1 (0.0-0.4); EOSINOPHILS % 1.3 % (0.0-6.0); HEMOGLOBIN 15.5 g/dL (12.0-16.0); LYMPHOCYTES # (AUTO) 3.7 (1.0-3.2); LYMPHOCYTES % 33.2 % (18.0-39.1); MEAN CORPUSCULAR HEMOGLOBIN 32.4 pg (28-32); MEAN CORPUSCULAR HGB CONC 34.4 g/dL (31-35); MEAN CORPUSCULAR VOLUME 94.1 fL (81-99); MONOCYTES # (AUTO) 0.8 (0.2-0.8); MONOCYTES % 7.1 % (4.4-11.3); NEUTROPHILS # (AUTO) 6.3 (2.1-6.9); NEUTROPHILS % 57.5 % (38.7-80.0); PLATELET COUNT 337 x10e3/uL (140-360); RED BLOOD COUNT 4.78 x10e6/uL (3.6-5.1); RED CELL DISTRIBUTION WIDTH 12.1 % (11.7-14.4)
[2018-12-21 12:39] LABS: BILIRUBIN,URINE NEGATIVE (NEGATIVE); CLARITY,URINE CLEAR (CLEAR); COLOR,URINE YELLOW (YELLOW); KETONES,URINE NEGATIVE (NEGATIVE); LEUKOCYTE ESTERASE ,URINE NEGATIVE (NEGATIVE); NITRITE,URINE NEGATIVE (NEGATIVE); PROTEIN,URINE DIPSTICK 2+ (NEGATIVE); URINE UROBILINOGEN 0.2 mg/dL (0.2 - 1)
[2018-12-21 12:41] LABS: PREGNANCY TEST, URINE NEGATIVE (NEGATIVE)
[2018-12-21 12:50] LABS: BACTERIA,URINE MODERATE /HPF; EPITHELIAL CELLS,URINE FEW /LPF; RBC,URINE 0-5 /HPF (0-5); WBC,URINE (MAN) 0-5 /HPF (0-5)
[2018-12-21 13:01] LABS: ALBUMIN 3.6 g/dL (3.5-5.0); ALBUMIN/GLOBULIN RATIO 1.1 (0.8-2.0); ANION GAP 20.8 mmol/L (8-16); CALCIUM 9.5 mg/dL (8.4-10.2); CREATININE, SERUM 1.17 mg/dL (0.57-1.11)
[2018-12-21 13:03] LABS: POTASSIUM 2.8 mmol/L (3.5-5.1)
[2018-12-21] MEDS ORDERED: METOCLOPRAMIDE HCL 10 MG/2ML VIAL IV ONE (13:30)
[2018-12-21] MEDS ORDERED: POTASSIUM CHLORIDE 20 MEQ TAB CR PO ONE (13:30)
[2018-12-21] MEDS ORDERED: KETOROLAC TROMETHAMINE 30 MG/ML VIAL IV ONE (13:30)
[2018-12-21] MEDS ORDERED: KCL 20MEQ/.9 SOD CHL 1,000 ML IV ONE (13:30)
[2018-12-21] MEDS ORDERED: ZOFRAN4 MG SL (16:51)
[2018-12-21] MEDS ORDERED: PROMETHAZINE HC25 M1 PO (17:09)
== END 2018-12-21 17:16 | disposition home or self-care (01) ==
LOC: ER 11:46
DX: R10.13 Epigastric pain (principal); R10.84 Generalized abdominal pain; R11.2 Nausea with vomiting, unspecified; R19.7 Diarrhea, unspecified; E87.6 Hypokalemia; K52.9 Noninfective gastroenteritis and colitis, unspecified
CPT/HCPCS: 36415; 80053; 81001; 81025; 82150; 83690; 83735; 85025; 87086; 99284; J1885; J2765; J7030

== ENCOUNTER 2019-04-17 08:43 | Emergency (ER) | payer BC ==
[~2019-04-17] VITALS: Ht 167.6 cm; Wt 61.2 kg
[~2019-04-17 08:43] MED LIST: PROMETHAZINE HC25 M1 PO; ZOFRAN4 MG SL
--- NOTE | 2019-04-17 09:05 | NUR ---
Blood taken to lab at this time
--- NOTE | 2019-04-17 09:06 | NUR ---
Upon arrival, pt informed of need to provide urine sample. Pt states she is unable to void at this time. Informed pt of possible need to insert catheter to obtain sample. Pt refused at this time.
[2019-04-17 09:21] LABS: BASOPHILS % 0.3 % (0.0-1.0); EOSINOPHILS # (AUTO) 0.2 (0.0-0.4); EOSINOPHILS % 1.2 % (0.0-6.0); HEMOGLOBIN 12.6 g/dL (12.0-16.0); LYMPHOCYTES # (AUTO) 3.4 (1.0-3.2); LYMPHOCYTES % 24.4 % (18.0-39.1); MEAN CORPUSCULAR HEMOGLOBIN 31.2 pg (28-32); MEAN CORPUSCULAR HGB CONC 34.1 g/dL (31-35); MEAN CORPUSCULAR VOLUME 91.6 fL (81-99); MONOCYTES # (AUTO) 1.2 (0.2-0.8); MONOCYTES % 8.6 % (4.4-11.3); NEUTROPHILS % 65.1 % (38.7-80.0); PLATELET COUNT 262 x10e3/uL (140-360); RED BLOOD COUNT 4.04 x10e6/uL (3.6-5.1); RED CELL DISTRIBUTION WIDTH 11.9 % (11.7-14.4)
[2019-04-17] MEDS ORDERED: HYDROMORPHONE 1MG/1ML INJ IV STA (09:27)
[2019-04-17] MEDS ORDERED: SODIUM CHLORIDE 0.9% 1000ML 1,000 ML IV STA (09:27)
[2019-04-17] MEDS ORDERED: PANTOPRAZOLE 40 MG 10ML VIAL IV STA (09:27)
[2019-04-17 09:30] LABS: INR 0.89; PROTHROMBIN TIME 12.5 seconds (11.9-14.5)
[2019-04-17] MEDS ORDERED: PROMETHAZINE 12.5MG/ NACL 0.9% 12.5 MG/50 ML BAG IV ONE (09:30)
[2019-04-17 09:31] LABS: PARTIAL THROMBOPLASTIN TIME 24.5 seconds (23.8-35.5)
[2019-04-17 09:41] LABS: ALANINE AMINOTRANSFERASE 8 IU/L (0-55); ALBUMIN 3.3 g/dL (3.5-5.0); ALBUMIN/GLOBULIN RATIO 1.1 (0.8-2.0); ALKALINE PHOSPHATASE 70 IU/L (40-150); ANION GAP 14.1 mmol/L (8-16); BLOOD UREA NITROGEN 13 mg/dL (7-26); BUN/CREATININE RATIO 15 (6-25); CALCIUM 8.9 mg/dL (8.4-10.2); CARBON DIOXIDE 20 mmol/L (22-29); CHLORIDE 107 mmol/L (98-107); CREATININE, SERUM 0.87 mg/dL (0.57-1.11); EST GLOMERULAR FILTRATION RATE > 60 ML/MIN (60-); GLUCOSE 113 mg/dL (74-118); POTASSIUM 3.1 mmol/L (3.5-5.1); SODIUM 138 mmol/L (136-145)
--- NOTE | 2019-04-17 09:45 | Diagnostic Imaging Report ---
EXAMINATION: CHEST SINGLE (PORTABLE) INDICATION: Hypertension, abdominal pain COMPARISON: None FINDINGS: LINES/TUBES:EKG leads overlie the chest. LUNGS:The lungs are well-inflated. No focal consolidation or pulmonary edema. PLEURA:No pleural effusion or pneumothorax. MEDIASTINUM:The cardiomediastinal silhouette appears normal in size and shape. BONES/SOFT TISSUES:No acute osseous injury. Partially visualized cervical spine fusion hardware. ABDOMEN:No free air under the diaphragm. IMPRESSION: No focal pneumonia or pulmonary edema. Signed by: Luis Angel Calles MD on 04/17/2019 9:42 AM
[2019-04-17] MEDS ORDERED: PROMETHAZINE HCL (IM) 25 MG/ML VIAL ONE (09:54)
[2019-04-17 10:05] LABS: LIPASE 12 U/L (8-78)
[2019-04-17 10:15] LABS: CREATINE KINASE MB < 1.00 ng/mL (0-4.3)
[2019-04-17 10:20] LABS: CREATINE KINASE 56 IU/L (29-168)
[2019-04-17 10:20] LABS: BILIRUBIN,URINE NEGATIVE (NEGATIVE); CLARITY,URINE CLEAR (CLEAR); COLOR,URINE YELLOW (YELLOW); KETONES,URINE NEGATIVE (NEGATIVE); LEUKOCYTE ESTERASE ,URINE NEGATIVE (NEGATIVE); NITRITE,URINE NEGATIVE (NEGATIVE); URINE UROBILINOGEN 0.2 mg/dL (0.2 - 1)
[2019-04-17 10:27] LABS: PROTEIN,URINE DIPSTICK 3+ (NEGATIVE)
[2019-04-17 10:29] LABS: AMPHETAMINES SCREEN,URINE NEGATIVE (NEGATIVE); BENZODIAZEPINES SCREEN,URINE NEGATIVE (NEGATIVE); PHENCYCLIDINE SCREEN,URINE NEGATIVE (NEGATIVE)
[2019-04-17 10:45] LABS: BACTERIA,URINE MANY /HPF; EPITHELIAL CELLS,URINE MODERATE /LPF
--- NOTE | 2019-04-17 10:53 | NUR ---
Pt reports increased pain. Dr. Enriquez notified. Waiting further orders
[2019-04-17] MEDS ORDERED: CEFTRIAXONE SOD 1 GM/NS 50 ML 50 ML IV ONE (11:00)
--- NOTE | 2019-04-17 11:48 | Diagnostic Imaging Report ---
EXAM: CT Abdomen and Pelvis WITH intravenous contrast INDICATION: Abdominal pain COMPARISON: None. TECHNIQUE: Abdomen and pelvis were scanned utilizing a multidetector helical scanner from the lung base to the pubic symphysis after administration of IV contrast. Coronal and sagittal reformations were obtained. Routine protocol was performed. Scan was performed during portal venous phase. IV CONTRAST: 100mL of Isovue 370 ORAL CONTRAST: Water RADIATION DOSE: Total DLP: 221.3 mGy*cm Dose modulation, iterative reconstruction, and/or weight based adjustment of the mA/kV was utilized to reduce the radiation dose to as low as reasonably achievable. FINDINGS: LOWER THORAX: Normal. HEPATOBILIARY: Mild diffuse hepatic steatosis. Hepatomegaly to 19.7 cm. No focal liver lesion. No biliary ductal dilation. Status post cholecystectomy. SPLEEN: No splenomegaly. PANCREAS: No focal masses or ductal dilatation. ADRENALS: No adrenal nodules. KIDNEYS/URETERS: No hydronephrosis, stones, or solid mass lesions. PELVIC ORGANS/BLADDER: Status post hysterectomy. PERITONEUM / RETROPERITONEUM: No free air or fluid. LYMPH NODES: No lymphadenopathy. VESSELS: Unremarkable. GI TRACT: No distention or wall thickening. Status post appendectomy. BONES AND SOFT TISSUES: No acute osseous injury. No suspicious lytic or blastic lesions. Postoperative findings of L5-S1 disc implant. IMPRESSION: No acute findings in the abdomen or pelvis. Hepatomegaly and hepatic steatosis. Signed by: Luis Angel Calles MD on 04/17/2019 11:45 AM
--- NOTE | 2019-04-17 12:10 | NUR ---
to room with md to discuss findings and concern of 9 different prescribers with moderate risk of seditives and pain meds prescribed in last 2 years. pt states she does see pain management, but cant remember his name...pt positive on uds and urine was obtained before ANY meds given here per md order. pt now states she's had 5 five back surgeries. and three in last 2 years.
[2019-04-17 12:22] VITALS: BP 150/81
[2019-04-17] MEDS ORDERED: IOPAMIDOL 370 MG/ML 200 ML INFUS..BTL INJ ONE (13:20)
[2019-04-17] MEDS ORDERED: SODIUM CHLORIDE 0.9% 50ML 50 ML ONE (13:20)
== END 2019-04-17 12:45 | disposition home or self-care (01) ==
LOC: ER 08:55
DX: R10.13 Epigastric pain (principal); R11.0 Nausea; K29.00 Acute gastritis without bleeding; N30.91 Cystitis, unspecified with hematuria
CPT/HCPCS: 36415; 71045; 74177; 80053; 80307; 81001; 82550; 82553; 83690; 84484; 84702; 85025; 85610; 85730; 87086; 99284; C9113; J0696; J1170; J2550; J7030; Q9967